=== PATIENT | male | born 1965 | race Caucasian/White ===

== ENCOUNTER 2025-01-02 00:53 | Emergency (ER) | payer OTHER, SELFPAY ==
[2025-01-02 00:58] VITALS: BP 141/99; PULSE 84; TEMP 36.8; O2SAT 95; BMI 25.8
--- NOTE | 2025-01-02 01:16 | XR_ITS ---
[facility] [place] [id number] Patient Name: MARYANA HARGROVE MRN: [id number] date: 1965 Sex: M Assigned Patient Location: ED.MAIN Current Patient Location: Accession/Order Number: [id number] Exam Date: 01/02/2025 06:29 Report Date: 01/02/2025 06:30 At the request of: MIKE DEE MD Procedure: XR hand LT min 3V XR hand LT min 3V 01/02/2025 1:37 AM SIGNS AND SYMPTOMS: ^index finger injury PROTOCOL: Frontal, lateral, and oblique radiographs of the left hand COMPARISON: None FINDINGS: The joint spaces are preserved. There is no fracture or dislocation. The joint spaces are preserved. Soft tissue swelling is noted along the second digit greatest distally. XR/XR hand LT min 3V IMPRESSION: No fracture or dislocation. Soft tissue swelling is noted along the second digit, greatest distally. Impression dictated by: Bam Rodriguez M.D. 01/02/2025 6:30 AM Dictation Location: [facility] Electronically authenticated by: [id number] Y Date: 01/02/2025 06:30
--- NOTE | 2025-01-02 01:17 | ED_ITS ---
HPI HPI - Extremity Injury (Upper) General Chief Complaint: Extremity Injury, Upper Stated Complaint: UPPER EXREMITY INJURY, RIGHT, [facility] Time Seen by Provider: 01/02/25 01:14 Source: patient Mode of arrival: walk-in Limitations: no limitations History of Present Illness HPI narrative: using a hammer at work to hit an item and his finger was under the item he struck. He lacerated the fat pad of his left index finger. Has FROM of the finger and tetanus is UTD Related Data Allergies Allergy/AdvReac Type Severity Reaction Status Date / Time Penicillins Allergy Unknown Unknown Verified 01/02/25 01:02 Opioid HPI Opioid Management Most Recent Pain and Opioid Data: Last Pain Scale 5 Today, 00:58 Review of Systems ROS Status of ROS 10 or more systems reviewed and unremark able except as noted in history and below PFSH PFSH Social History Little interest or pleasure in doing things: not at all Feeling down, depressed, or hopeless: not at all Exam Constitutional Vital Signs, click to edit/add: Last Vital Signs Temp 98.2 F 01/02/25 00:58 Pulse 84 01/02/25 00:58 Resp 16 01/02/25 00:58 BP 141/99 H 01/02/25 00:58 Pulse Ox 95 01/02/25 00:58 O2 Del Method Room Air 01/02/25 00:58 Common normals: no apparent distress, average body habitus, oriented x3, no limitations, healthy appearing, alert and well nourished [facility] Common normals: normocephalic and head/scalp atraumatic Eye Common normals: EOMs intact bilaterally and conjunctivae normal Respiratory Common normals: normal respiratory effort, no retractions, no use of accessory muscles and clear to auscultation bilaterally Cardio Common normals: regular rate, regular rhythm, S1 normal heart sound and S2 normal heart sound Extremity Other: 2cm lac fat pad left index finger. No deformity of the finger and ROM is full Neuro Common normals: oriented x3, CN's II-XII intact bilaterally, moves all extremities and no focal motor deficits Psych Appearance: grossly normal Course Vital Signs Vital signs: Vital Signs Temperature 98.2 F 01/02/25 00:58 Pulse Rate 84 01/02/25 00:58 Respiratory Rate 16 01/02/25 00:58 Blood Pressure 141/99 H 01/02/25 00:58 Pulse Oximetry 95 01/02/25 00:58 Oxygen Delivery Method Room Air 01/02/25 00:58 Temperature 98.2 F 01/02/25 00:58 Pulse Rate 84 01/02/25 00:58 Respiratory Rate 16 01/02/25 00:58 Blood Pressure 141/99 H 01/02/25 00:58 Pulse Oximetry 95 01/02/25 00:58 Oxygen Delivery Method Room Air 01/02/25 00:58 MDM - Extremity Injury (Upper) MDM Narrative Medical decision making narrative: presents from work with blunt laceration of the left index finger. Lac repaired as above. xray obtained and results pending xray reviewed and per my preliminary review no fracture noted. Finger dressed and patient discharged home Discharge Plan Discharge Chief Complaint: Extremity Injury, Upper Clinical Impression: Laceration of left index finger Patient Disposition: Home, Self-Care Print Language: [place] Instructions: Laceration (ED) Additional Instructions: follow up with industrial medicine tomorrow. Have sutures removed in 10 days. May use tylenol or motrin as needed for pain. Keep wound clean and dry. Referrals: Physician,Non-Staff, MD [Primary Care Provider] - 1 week Discharge Date/Time: 01/02/25 02:26 Procedures ED Procedure Instructions Procedures Procedures: left index finger laceration. 1%lido as a local. Site cleaned with betadine and rinsed with saline. closed with # 4 3.0 nylon stitches
[2025-01-02] MEDS: LIDOCAINE HCL 1% 100 MG/10 ML MDV INJ (01:29)
== END 2025-01-02 02:26 | disposition home or self-care (01) ==
PROVIDERS: Emergency Provider Internal Medicine
DX: S61.211A Laceration without foreign body of left index finger without damage to nail, initial encounter (principal); W22.8XXA Striking against or struck by other objects, initial encounter
CPT/HCPCS: 12001; 73130; 99283